=== PATIENT | female | born 1995 | race Caucasian/White ===

== ENCOUNTER 2017-03-07 11:39 | Emergency (ER) | payer OTHER ==
[2017-03-07 11:50] VITALS: BMI 22.8
--- NOTE | 2017-03-07 12:59 | PDOC ---
History of Present Illness - General Chief Complaint: Syncope/Near Syncope Stated Complaint: DIZZINESS Time Seen by Provider: 03/07/17 12:11 History Source: Patient Exam Limitations: No Limitations - History of Present Illness Initial Comments: 03/07/17 13:00 22-year-old female brought in for syncopal episode Patient states since yesterday has had bouts of dizziness with midsternal dull pain worsened with movement and deep breathing along with palpitations. Patient states went to her primary care physician yesterday who did an EKG and stated it was slightly elevated but otherwise discharged home to have blood work done today. Patient states today she woke up with of generalized throbbing headache along with intermittent dizziness worsened with movement and while she was in the kitchen getting her daughter's stuff together she said she started to feel increased symptoms of dizziness and chest pain then awoke up on the kitchen floor. As per patient, she does not remember hitting the floor and states only lasted a few minutes since she looked at the clock. Patient currently has no complaints of headache but does complain generalized weakness along with midsternal chest achiness. Patient denies recent travel, recent illness, medical history, thyroid disorders, smoking history, recent travel drug use, or recent head injury. Presenting Symptoms: Chest Pain, Dizziness Timing/Duration: reports: intermittent Severity/Quality: reports: mild, dull Location: reports: substernal Chest Pain Radiation: reports: no radiation Activities at Onset: reports: none Aspirin Received prior to arrival (Core Measure): Yes: no aspirin today Associated Symptoms: Yes: Chest Pain/pressure, Dizziness, Headache, Syncope Past History - Travel Traveled outside of the country in the last 30 days: No - Past Medical History Allergies/Adverse Reactions: Allergies Allergy/AdvReac Type Severity Reaction Status Date / Time No Known Allergies Allergy Verified 03/07/17 11:47 Home Medications: Ambulatory Orders NK [No Known Home Medication] 03/07/17 Asthma: No Cancer: No Cardiac Disorders: No Diabetes: No HTN: No Seizures: No Thyroid Disease: No Other medical history: denies - Surgical History Abdominal Surgery: Yes - Immunization History Immunization Up to Date: Yes - Suicide/Smoking/Psychosocial Hx Smoking History: Never smoked Have you smoked in the past 12 months: No Hx Alcohol Use: No Drug/Substance Use Hx: No Hx Substance Use Treatment: No Patient Lives Alone: No Lives with/in: parents Review of Systems - Review of Systems Able to Perform ROS?: Yes Constitutional: Yes: Weakness HEENTM: No: Symptoms Reported Respiratory: No: Symptoms reported Cardiac (ROS): Yes: Chest Pain, Lightheadedness, Syncope ABD/GI: No: Symptoms Reported : No: Symptoms Reported Musculoskeletal: No: Symptoms Reported Integumentary: No: Symptoms Reported Neurological: No: Headache, Dizziness Hematologic/Lymphatic: No: Symptoms Reported *Physical Exam - Vital Signs Last Vital Signs Temp Pulse Resp BP Pulse Ox 98.9 F 82 16 128/65 99 03/07/17 15:49 03/07/17 15:49 03/07/17 15:49 03/07/17 15:49 03/07/17 15:49 - Physical Exam General Appearance: Yes: Nourished, Appropriately Dressed. No: Apparent Distress HEENT: negative: Pale Conjunctivae Neck: positive: Normal Thyroid, Supple Respiratory/Chest: positive: Chest Tender (midsternal), Lungs Clear, Normal Breath Sounds. negative: Respiratory Distress, Accessory Muscle Use Cardiovascular: positive: Regular Rhythm, Regular Rate. negative: Murmur Gastrointestinal/Abdominal: positive: Soft. negative: Tenderness Extremity: positive: Normal Capillary Refill. negative: Pedal Edema Integumentary: positive: Normal Color, Warm, Moist Neurologic: positive: Normal Mood/Affect, Motor Strength 5/5 (ambulatory) Heart Score/ECG Review - ECG Intrepretation Rhythm: Regular Rhythm (rate 87. NSR with PACs.) ED Treatment Course - LABORATORY CBC & Chemistry Diagram: 03/07/17 13:07 03/07/17 13:07 - ADDITIONAL ORDERS Additional order review: Laboratory Results 03/07/17 03/07/17 03/07/17 13:07 13:07 12:15 D-Dimer < 200 Sodium 140 Potassium 4.5 Chloride 105 Carbon Dioxide 28 Anion Gap 7 L BUN 10 Creatinine 0.7 D Creat Clearance w eGFR > 60 Random Glucose 59 L Calcium 9.1 Magnesium 2.2 Total Bilirubin 0.5 AST 18 ALT 17 Alkaline Phosphatase 62 Total Protein 7.6 Albumin 4.1 TSH 0.80 Urine HCG, Qual Negative 03/07/17 13:07 RBC 5.14 MCV 81.2 MCHC 32.6 RDW 13.0 MPV 9.6 Neutrophils % 45.7 D Lymphocytes % 35.7 D Monocytes % 17.6 H Eosinophils % 0.9 D Basophils % 0.1 D - Medications Given in the ED: ED Medications Discontinued Medications Generic Name Dose Route Start Last Admin Trade Name Liam PRN Reason Stop Dose Admin Ketorolac Tromethamine 30 mg 03/07/17 14:47 03/07/17 15:13 Toradol Injection - IVPUSH 03/07/17 14:48 30 mg ONCE ONE Administration Medical Decision Making - Medical Decision Making 03/07/17 13:07 Patient with complaints of headache, dizziness and palpitations since yesterday and now with a syncopal episode this morning. Patient on exam had reproducible midsternal chest pain at the level of the third rib extending to the sixth rib. Patient concerning for electrolyte imbalance, dehydration, , PE, anemia, or intracranial pathology. Patient ordered for labs, EKG, chest x-ray, urine, and head CT. 03/07/17 14:46 Laboratory Tests 03/07/17 03/07/17 03/07/17 12:15 13:07 13:07 WBC Hgb Hct Plt Count Neutrophils % D-Dimer < 200 Sodium 140 Potassium 4.5 Chloride 105 Carbon Dioxide 28 Anion Gap 7 L BUN 10 Creatinine 0.7 D Creat Clearance w eGFR > 60 Random Glucose 59 L Calcium 9.1 Magnesium 2.2 TSH Pending Urine HCG, Qual Negative 03/07/17 13:07 WBC 4.0 D Hgb 13.6 Hct 41.7 Plt Count 138 Neutrophils % 45.7 D D-Dimer Sodium Potassium Chloride Carbon Dioxide Anion Gap BUN Creatinine Creat Clearance w eGFR Random Glucose Calcium Magnesium TSH Urine HCG, Qual Patient will be given 2 containers of orange juice secondary to low glucose. Awaiting TSH and head CT reading. Will order Toradol. 03/07/17 16:00 Chest x-ray shows no consolidation or opacity to suggest pneumonia. Head CT shows no evidence of acute intracranial hemorrhage or acute skull fracture. There is no mass effect, midline shift or hydrocephalus. Apparent partially empty sella turcica which is nonspecific, but has described and patient's with idiopathic intracranial hypertension. Patient has no complaints presently after receiving Toradol. Patient will be discharged home to follow-up with her PCP take Tylenol for discomfort, and rest. 03/07/17 16:22 Laboratory Tests 09/28/17 13:07 TSH 0.80 *DC/Admit/Observation/Transfer Diagnosis at time of Disposition: Muscular chest pain - Discharge Dispostion Disposition: HOME Condition at time of disposition: Improved - Referrals Referrals: Haven Cantu MD [Primary Care Provider] - - Patient Instructions Printed Discharge Instructions: DI for Musculoskeletal Pain Additional Instructions: Please take Tylenol every 6 hours for discomfort. Please drink plenty of fluids. Please follow up with her primary care physician and/or return to ED if symptoms worsen.
[2017-03-07 13:22] LABS: BASOPHIL 0.1 % (0-2.0); EOSINOPHIL 0.9 % (0-4.5); MCH 26.5 pg (25.7-33.7); MCHC 32.6 g/dl (32.0-36.0); MEAN CELL VOLUME 81.2 fl (80-96); MEAN PLT VOLUME 9.6 fl (7.5-11.1); NEUTROPHILS 45.7 % (42.8-82.8); PLATELET COUNT 138 K/MM3 (134-434)
[2017-03-07 13:50] LABS: ALBUMIN 4.1 g/dl (3.4-5.0); ANION GAP 7 (8-16); BILIRUBIN,TOTAL 0.5 mg/dL (0.2-1.0); CALCIUM 9.1 mg/dL (8.5-10.1); CO2 28 mmol/L (21-32); CREATININE 0.7 mg/dL (0.55-1.02); GLUCOSE,RANDOM 59 mg/dL (74-106); MAGNESIUM 2.2 mg/dL (1.8-2.4); SGOT/AST 18 U/L (15-37); SGPT/ALT 17 U/L (12-78); TOT PROT 7.6 g/dl (6.4-8.2)
[2017-03-07 13:51] LABS: ALK PHOS 62 U/L (45-117)
[2017-03-07] MEDS ORDERED: KETOROLAC TROMETHAMINE 30 MG/1 ML VIAL IVPUSH ONE (14:47)
[2017-03-07] MEDS ORDERED: KETOROLAC TROMETHAMINE 30 MG/1 ML VIAL ONE (15:04)
[2017-03-07 15:50] VITALS: BP 128/65; PULSE 82; TEMP 98.9
--- NOTE | 2017-03-07 15:53 | EKG ---
Test Reason : Blood Pressure : / mmHG Vent. Rate : 087 BPM Atrial Rate : 087 BPM P-R Int : 102 ms QRS Dur : 072 ms QT Int : 352 ms P-R-T Axes : 100 075 050 degrees QTc Int : 423 ms SINUS RHYTHM WITH SHORT VA WITH PREMATURE ATRIAL COMPLEXES OTHERWISE NORMAL ECG NO PREVIOUS ECGS AVAILABLE Confirmed by CHINA MORTON, MAHENDRA ([id number]) on 03/07/2017 3:53:42 PM Referred By: Confirmed By:MAHENDRA ATKINSON MD
== END 2017-03-07 16:35 | disposition home or self-care (01) ==
LOC: JER 11:39
PROC: 3E0333Z Introduction of Anti-inflammatory into Peripheral Vein, Percutaneous Approach (ICD-10-PCS; principal; 2017-03-07)
DX: R07.89 Other chest pain (principal)
CPT/HCPCS: 36415; 70450-TC; 71020-TC; 80053; 83735; 84443; 84703; 85025; 85379; 93005; 93010; 99285-25